=== PATIENT | male | born 1990 | race Caucasian/White ===

== ENCOUNTER 2023-10-02 15:10 | Emergency (ER) | payer OTHER, SELFPAY ==
--- NOTE | ~2023-10-02 | XR_ITS ---
EXAMINATION: XR TOES, RIGHT CLINICAL INFORMATION: Great toe injury COMPARISON: None available. TECHNIQUE: 3 views of the right toes were obtained. FINDINGS: There are no fractures or dislocations. No joint effusion is identified. No bone, joint or soft tissue abnormality is demonstrated. XR/XR toe RT min 2V IMPRESSION: Unremarkable examination.
[2023-10-02 15:13] VITALS: BP 133/72; PULSE 88; RESP 18; TEMP 36.9; O2SAT 96; BMI 35.2
--- NOTE | 2023-10-02 15:16 | ED_ITS ---
HPI - General Adult General Chief complaint: Extremity Injury, Lower Stated complaint: table fell on foot @ work, ref here for xray Time Seen by Provider: 10/02/23 15:50 History of Present Illness HPI narrative: Patient complains of work-related injury where he was moving a table and it dropped and it fell right on his right foot big toe and now it is painful No other injury no other complaint no numbness weakness or tingling, he can walk on it but is limping Related Data Previous Rx's ?Medication ?Instructions ?Recorded acetaminophen 500 mg tablet 1,000 mg (2 x 500 mg) PO QID PRN 10/02/23 pain #30 tabs ibuprofen 600 mg tablet 600 mg PO Q6H PRN pain #20 tabs 10/02/23 oxycodone 5 mg tablet 5 mg PO BID PRN pain #5 tabs 10/02/23 Allergies Allergy/AdvReac Type Severity Reaction Status Date / Time No Known Allergies Allergy Verified 10/02/23 15:17 [facility] Past Medical History Source: nursing notes reviewed Social History Social History Advance Directives: No Advance Directives Information Provided: No Do you have a plan to hurt others: No Plan Physical Exam ED Vital Signs: Vital Signs - 24 hr 10/02/23 15:13 Temperature 98.4 F Pulse Rate 88 Respiratory Rate 18 Blood Pressure 133/72 Pulse Oximetry 96 Oxygen Delivery Method Room Air BMI result Body Mass Index 35.2 General appearance no distress Head is normocephalic atraumatic Neck is supple Respiratory no distress Extremities full range motion x4 Right big toe has a large subungual hematoma below the nail, no other significant swelling, neurovascular intact and full range of motion Course Course Course Narrative: This is a Rapid Medical Examination (RME) performed by Juana Olivera PA-C in triage. Full HPI, ROS, assessment and treatment plan per primary provider in the Main ED. 33 yo male here for eval of right great toe pain after dropping a table on his right foot while at work [employer] in ED. tetanus UTD. was seen at for this and sent here for xr. +subungal hematoma noted to right great toe nail. abrasion noted to distal top of foot. 2+ dp/pt pulse. ambulating w/ antalgic gait. Plan: xr Patient was advised to get the subungual hematoma drained as I told him it would likely hurt for at least 2 more days, he does not like needles and did not want a digital block or trephination of the nail bed so I did not do He was informed a digital block would put him to sleep for at least for 5 hours and that draining the blood would decrease the pain significantly but he still did not want to Medications Administered Discontinued Medications Generic Name Dose Route Start Last Admin Trade Name Chet PRN Reason Stop Dose Admin Acetaminophen 975 mg 10/02/23 17:12 10/02/23 17:17 Acetaminophen 325 Mg Tablet PO 10/02/23 17:13 975 mg ONCE ONE Administration Ibuprofen 600 mg 10/02/23 17:12 10/02/23 17:18 Ibuprofen 600 Mg Tablet PO 10/02/23 17:13 600 mg ONCE ONE Administration Discharge Plan Discharge Clinical Impression: Subungual hematoma of great toe Patient Disposition: Home, Self-Care Additional Instructions: The x-ray was normal, no broken toe But there was a lot of blood under the nail and the best treatment for that to relieve pain is to drain it Because you did not want that done it may hurt for 2 or 3 days so we gave you a rigid shoe, you can use Tylenol or Motrin as needed, elevate the foot when you are not walking, at night if it is hurting a lot you can take the Percocet but you are not supposed to drive or operate machinery for 6 hours after taking oxycodone Follow with [facility] for work related injury if needed Return any time any concerns Prescriptions: New acetaminophen 500 mg tablet 1,000 mg PO QID PRN (Reason: pain) Qty: 30 0RF ibuprofen 600 mg tablet 600 mg PO Q6H PRN (Reason: pain) Qty: 20 0RF oxycodone 5 mg tablet 5 mg PO BID PRN (Reason: pain) Qty: 5 0RF Rx Instructions: Partial Fill upon patient request. Referrals: [facility] [Provider Group] (Big toe injury) Stand Alone Forms: Work/School Release Print Language: Wolof
[2023-10-02] MEDS: Acetaminophen 325 MG TABLET 975 MG PO (17:17)
[2023-10-02] MEDS: Ibuprofen 600 MG TABLET PO (17:18)
[2023-10-02 17:23] VITALS: BP 133/72; PULSE 88; RESP 18; TEMP 36.9; O2SAT 96
== END 2023-10-02 17:28 | disposition home or self-care (01) ==
PROVIDERS: Emergency Provider Emergency Medicine Emergency Medical Services
DX: S90.211A Contusion of right great toe with damage to nail, initial encounter (principal); W20.8XXA Other cause of strike by thrown, projected or falling object, initial encounter; Y93.9 Activity, unspecified; Y92.9 Unspecified place or not applicable; Y99.9 Unspecified external cause status
CPT/HCPCS: 73660; 99283